=== PATIENT | female | born 1950 | race African-American/Black ===

== ENCOUNTER → 2017-06-26 | Outpatient (CLI) | payer MEDICARE, BC | LOC: MAMMO 10:42 | PROVIDERS: ATTEND Internal Medicine | DX: Z12.31 Encounter for screening mammogram for malignant neoplasm of breast (principal) | CPT/HCPCS: 77067 ==

== ENCOUNTER → 2018-02-04 | Outpatient (CLI) | payer MEDICARE, BC ==
--- NOTE | 2018-02-04 14:59 | Diagnostic Imaging Report ---
Exam: Right hip 2 views History: Pain Comparison: None. Findings: No fracture or malalignment. Mild right hip degenerative arthosis. No abnormal soft tissue calcification or soft tissue defect. Impression: No acute osseous abnormality Mild right hip degenerative arthrosis Signed by: Dr. Nishant Zhao M.D. on 02/04/2018 2:55 PM
== END ==
LOC: RAD 14:00
PROVIDERS: ATTEND Internal Medicine
DX: S73.191S Other sprain of right hip, sequela (principal)

== ENCOUNTER 2018-11-24 09:31 | Emergency (ER) | payer BC, MEDICARE, OTHER ==
[~2018-11-24] VITALS: Ht 157.5 cm; Wt 75.7 kg
--- OUTSIDE RECORDS SUMMARY | 2018-11-24 09:34 | XMS REPORT ---
Author Author [facility] Address Unknown Phone Unavailable Care Team Providers Care Hotel Front Office Manager Name Role Phone Rahul STROUD Unavailable Unavailable Problems This patient has no known problems. Allergies, Adverse Reactions, Alerts This patient has no known allergies or adverse reactions. Medications This patient has no known medications. Results Test Description Test Time Test Comments Text Results Atomic Results Result Comments HIP RIGHT 2-3 VW (+/- PELVIS) 2018-02-04 14:52:00 [place] [address] Patient Name: MAMI MORALES MR #: [id number] : 1950 Age/Sex: 67/F Req #: [id number] Adm Physician: Ordered by: JENNIFER STROUD MD Report #: [id number] Location: [facility] Room/Bed: Procedure: [id number] DX/HIP RIGHT 2-3 VW (+/- PELVIS) Exam Date: Exam Time: REPORT STATUS: Signed Exam: Right hip 2 views History: Pain Comparison: None. Findings: No fracture or malalignment. Mild right hip degenerative arthosis. No abnormal soft tissue calcification or soft tissue defect. Impression: No acute osseous abnormality Mild right hip degenerative arthrosis Signed by: Dr. William Lu M.D. on 02/04/2018 2:55 PM Dictated By: WILLIAM LU MD 54 Transcribed By: NELIA on 02/04/181454 COPY TO: JENNIFER STROUD MD MAMMOGRAPHY DIGITAL SCR BILAT [place] [address] Patient Name: MAMI MORALES MR #: [id number] : 1950 Age/Sex: 67/F Req #: [id number] [facility] Physician: Ordered by: JENNIFER STROUD MD Report #: [id number] Location: MAMMO Room/Bed: Procedure: [id number] MG/MAMMOGRAPHY DIGITAL SCR BILAT Exam Date: 06/26/17 Exam Time: 1045 REPORT STATUS: Signed #[id number] - MGSCRBIL #BILATERAL DIGITAL SCREENING MAMMOGRAM WITH CAD: 06/26/2017 CLINICAL: Routine screening. Comparison is made to exams dated: 01/25/2016 mammogram, 01/01/2015 mammogram and 11/25/2013 mammogram - [facility]. Current study contains 4 films. The tissue of both breasts is predominantly fatty. Current study was also evaluated with a Computer Aided Detection (CAD) system. There are benign lymph nodes in both breasts. No significant masses, calcifications, or other findings are seen in either breast. There has been no significant interval change. IMPRESSION: BENIGN There is no mammographic evidence of malignancy. A 1 year screening mammogram is recommended. The patient will be notified by letter of the results. Jamar thompson/kali:07/05/2017 08:18:15 Administrative Services Coordinator: Lydia CASTRO(Blanca)(Rahul), [facility] letter sent: Compared to Prior B9 Mammogram BI- RADS: 2 Benign Dictated By: JAMAR BURNETTE DO 7 Transcribed By: KALI on 07/05/17817 COPY TO: JENNIFER STROUD MD
[2018-11-24 10:08] VITALS: BP 138/83
== END 2018-11-24 10:17 | disposition home or self-care (01) ==
LOC: ER 09:31
DX: S80.862A Insect bite (nonvenomous), left lower leg, initial encounter (principal); S80.861A Insect bite (nonvenomous), right lower leg, initial encounter; S90.562A Insect bite (nonvenomous), left ankle, initial encounter; S90.561A Insect bite (nonvenomous), right ankle, initial encounter; W57.XXXA Bitten or stung by nonvenomous insect and other nonvenomous arthropods, initial encounter; Y92.832 Beach as the place of occurrence of the external cause; I10 Essential (primary) hypertension; E78.5 Hyperlipidemia, unspecified
CPT/HCPCS: 99282